=== PATIENT | female | born 1970 | race American Indian/Alaskan Native ===

== ENCOUNTER 2016-08-20 10:27 | Inpatient (IN) | payer BC, OTHER ==
[2016-08-20] MEDS ORDERED: Sodium Chloride 0.9% 1,000 ML IV ONE (10:53)
[2016-08-20] MEDS ORDERED: diphenhydrAMINE 50 MG/ML SDV IVPUSH ONE ×2 (10:53→14:52)
[2016-08-20] MEDS ORDERED: LORazepam 2 MG/ML MDV IVPUSH ONE (10:53)
--- NOTE | 2016-08-20 10:55 | EDM.PDOC ---
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 Past medical history: As per history of present illness and as reviewed below otherwise noncontributory. Surgical history: As per history of present illness and as reviewed below otherwise noncontributory. Social history: No reported history of drug or alcohol abuse. Family history: As per history of present illness and as reviewed below otherwise noncontributory. Physical exam: HEENT: Atraumatic, normocephalic, pupils reactive, negative for conjunctival pallor or scleral icterus, mucous membranes moist, throat clear, neck supple, nontender, trachea midline. Lungs: Clear to auscultation, breath sounds equal bilaterally, chest nontender. Heart: S1S2, regular, negative for clicks, rubs, or JVD. Abdomen: Soft, nondistended, nontender. Negative for masses or hepatosplenomegaly. Negative for costovertebral tenderness. Pelvis: Stable nontender. Genitourinary: Deferred. Rectal: Deferred. Extremities: Atraumatic, negative for cords or calf pain. Neurovascular unremarkable. Neuro: Awake, alert, oriented. Cranial nerves II through XII unremarkable. Cerebellum unremarkable. Motor and sensory unremarkable throughout. Decreased security test engineer strength on the right compared to left as well as decreased plantar flexion of right foot Diagnostics: []Lab as below EKG Chest [address] without Therapeutics: []Normal saline bolus Ativan 1 mg IV Benadryl 50 mg IV Impression: []Dizziness Left hand tingling/decreased security test engineer strength compared to right Decreased plantar flexion left foot compared to right Definitive disposition and diagnosis as appropriate pending reevaluation and review of above. 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 Pain Score (Numeric/FACES): 8 - Related Data Allergies Allergy/AdvReac Type Severity Reaction Status Date / Time chocolate flavor Allergy Difficulty Verified 08/20/16 10:34 Breathing codeine Allergy Rash Verified 08/20/16 10:34 Home Meds: Home Meds Phentermine HCl 30 mg PO DAILY 08/20/16 [History] Topiramate 100 mg PO DAILY 08/20/16 [History] Past Medical History HEENT History: Reports: None Cardiovascular History: Reports: None Respiratory History: Reports: None Gastrointestinal History: Reports: None Genitourinary History: Reports: None 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: Musculoskeletal History: Reports: None Neurological History: Reports: None Psychiatric History: Reports: None Endocrine/Metabolic History: Reports: None Hematologic History: Reports: None Immunologic History: Reports: None Oncologic (Cancer) History: Reports: None Dermatologic History: Reports: None - Infectious Disease History Infectious Disease History: Reports: Chicken Pox - Past Surgical History GI Surgical History: Reports: Appendectomy, Cholecystectomy, Other (See Below) Other GI Surgeries/Procedures: Gastric Surgery Female Surgical History: Reports: Section Dermatological Surgical History: Reports: Other (See Below) Social & Family History - Family History Family Medical History: Noncontributory - Tobacco Use Smoking Status *Q: Never Smoker - Caffeine Use Caffeine Use: Reports: None - Alcohol Use Days Per Week of Alcohol Use: 0 Number of Drinks Per Day: 0 Total Drinks Per Week: 0 - Recreational Drug Use Recreational Drug Use: No Drug Use in Last 12 Months: No ED ROS GENERAL - Review of Systems Review Of Systems: ROS reveals no pertinent complaints other than HPI. ED EXAM, GENERAL - Physical Exam Exam: See Below Course - Vital Signs Last Recorded V/S: Last Vital Signs Temp 36.3 C 08/20/16 12:08 Pulse 69 08/20/16 12:08 Resp 18 08/20/16 12:08 BP 120/72 08/20/16 12:08 Pulse Ox 100 08/20/16 12:08 - Orders/Labs/Meds Orders: Active Orders 24 hr Category Date Time Status EKG Documentation Completion [RC] STAT Care 08/20/16 10:53 Active Labs: Laboratory Tests 08/20/16 08/20/16 08/20/16 Range/Units 11:00 11:00 11:00 WBC 5.80 (4.0-11.0) K/uL RBC 3.65 L (4.30-5.90) M/uL Hgb 11.7 L (12.0-16.0) g/dL Hct 34.0 L (36.0-46.0) % MCV 93.2 (80.0-98.0) fL MCH 32.1 H (27.0-32.0) pg MCHC 34.4 (31.0-37.0) g/dL RDW Std Deviation 44.2 (28.0-62.0) fl RDW Coeff of Terri 13 (11.0-15.0) % Plt Count 131 L (150-400) K/uL MPV 10.80 (7.40-12.00) fL Neut % (Auto) 68.2 (48.0-80.0) % Lymph % (Auto) 21.9 (16.0-40.0) % [place] % (Auto) 8.3 (0.0-15.0) % Eos % (Auto) 1.4 (0.0-7.0) % Baso % (Auto) 0.2 (0.0-1.5) % Neut # (Auto) 4.0 (1.4-5.7) K/uL Lymph # (Auto) 1.3 (0.6-2.4) K/uL [place] # (Auto) 0.5 (0.0-0.8) K/uL Eos # (Auto) 0.1 (0.0-0.7) K/uL Baso # (Auto) 0.0 (0.0-0.1) K/uL Nucleated RBC % 0.0 /100WBC Nucleated RBCs # 0 K/uL INR (0.86-1.11) Sodium 140 (136-146) mmol/L Potassium 3.5 (3.5-5.1) mmol/L Chloride 111 H (98-110) mmol/L Carbon Dioxide 23 (21-31) mmol/L BUN 12 (6.0-23.0) mg/dL Creatinine 0.7 (0.6-1.5) mg/dL Est Cr Clr Drug Dosing 82.19 mL/min Estimated GFR (MDRD) > 60.0 ml/min Glucose 104 (60-110) mg/dL Calcium 8.7 L (8.8-10.8) mg/dL Total Bilirubin 0.5 (0.1-1.5) mg/dL AST 15 (5-40) IU/L ALT 16 (8-54) IU/L Alkaline Phosphatase 67 (40-150) Troponin I < 0.10 (0.0-0.29) NG/ML Total Protein 6.1 (6.0-8.0) g/dL Albumin 3.6 (3.5-5.0) g/dL Globulin 2.5 (2.0-3.5) g/dL Albumin/Globulin Ratio 1.4 (1.3-2.8) Urine Color Urine Appearance Urine pH (5.0-8.0) Ur Specific [place] (1.001-1.035) Urine Protein (NEGATIVE) mg/dL Urine Glucose (UA) (NEGATIVE) mg/dL Urine Ketones (NEGATIVE) mg/dL Urine Occult Blood (NEGATIVE) Urine Nitrite (NEGATIVE) Urine Bilirubin (NEGATIVE) Urine Urobilinogen (<2.0) EU/dL Ur Leukocyte Esterase (NEGATIVE) Urine RBC (0-2/HPF) Urine WBC (0-5/HPF) Ur Epithelial Cells (NONE-FEW) Urine Bacteria (NEGATIVE) Urine HCG, Qual (NEGATIVE) 08/20/16 08/20/16 08/20/16 Range/Units 11:00 11:45 11:45 WBC (4.0-11.0) K/uL RBC (4.30-5.90) M/uL Hgb (12.0-16.0) g/dL Hct (36.0-46.0) % MCV (80.0-98.0) fL MCH (27.0-32.0) pg MCHC (31.0-37.0) g/dL RDW Std Deviation (28.0-62.0) fl RDW Coeff of Terri (11.0-15.0) % Plt Count (150-400) K/uL MPV (7.40-12.00) fL Neut % (Auto) (48.0-80.0) % Lymph % (Auto) (16.0-40.0) % [place] % (Auto) (0.0-15.0) % Eos % (Auto) (0.0-7.0) % Baso % (Auto) (0.0-1.5) % Neut # (Auto) (1.4-5.7) K/uL Lymph # (Auto) (0.6-2.4) K/uL [place] # (Auto) (0.0-0.8) K/uL Eos # (Auto) (0.0-0.7) K/uL Baso # (Auto) (0.0-0.1) K/uL Nucleated RBC % /100WBC Nucleated RBCs # K/uL INR 1.06 (0.86-1.11) Sodium (136-146) mmol/L Potassium (3.5-5.1) mmol/L Chloride (98-110) mmol/L Carbon Dioxide (21-31) mmol/L BUN (6.0-23.0) mg/dL Creatinine (0.6-1.5) mg/dL Est Cr Clr Drug Dosing mL/min Estimated GFR (MDRD) ml/min Glucose (60-110) mg/dL Calcium (8.8-10.8) mg/dL Total Bilirubin (0.1-1.5) mg/dL AST (5-40) IU/L ALT (8-54) IU/L Alkaline Phosphatase (40-150) Troponin I (0.0-0.29) NG/ML Total Protein (6.0-8.0) g/dL Albumin (3.5-5.0) g/dL Globulin (2.0-3.5) g/dL Albumin/Globulin Ratio (1.3-2.8) Urine Color YELLOW Urine Appearance CLEAR Urine pH 6.0 (5.0-8.0) Ur Specific [place] <= 1.005 (1.001-1.035) Urine Protein NEGATIVE (NEGATIVE) mg/dL Urine Glucose (UA) NEGATIVE (NEGATIVE) mg/dL Urine Ketones NEGATIVE (NEGATIVE) mg/dL Urine Occult Blood NEGATIVE (NEGATIVE) Urine Nitrite NEGATIVE (NEGATIVE) Urine Bilirubin NEGATIVE (NEGATIVE) Urine Urobilinogen 0.2 (<2.0) EU/dL Ur Leukocyte Esterase NEGATIVE (NEGATIVE) Urine RBC 0-2 (0-2/HPF) Urine WBC 0-3 (0-5/HPF) Ur Epithelial Cells MODERATE (NONE-FEW) Urine Bacteria FEW (NEGATIVE) Urine HCG, Qual NEGATIVE (NEGATIVE) Meds: Medications Discontinued Medications Generic Name Dose Route Start Last Admin Trade Name Freq PRN Reason Stop Dose Admin Aspirin 324 mg 08/20/16 12:54 Aspirin PO 08/20/16 12:55 ONETIME ONE Diphenhydramine HCl 50 mg 08/20/16 10:53 08/20/16 11:07 Benadryl IVPUSH 08/20/16 10:54 50 mg ONETIME ONE Administration Sodium Chloride 1,000 mls @ 999 mls/hr 08/20/16 10:53 08/20/16 11:07 Normal Saline IV 08/20/16 11:53 999 mls/hr STAT ONE Administration Ketorolac Tromethamine 30 mg 08/20/16 12:37 08/20/16 12:53 Toradol IVPUSH 08/20/16 12:38 30 mg ONETIME ONE Administration Lorazepam 1 mg 08/20/16 10:53 08/20/16 11:07 Ativan IVPUSH 08/20/16 10:54 1 mg ONETIME ONE Administration Departure - Departure Time of Disposition: 12:58 Disposition: Home, Self-Care 01 Condition: Fair Clinical Impression: Weakness of hand - Discharge Information Referrals: PCP,None [Primary Care Provider] - Forms: ED Department Discharge - My Orders Last 24 Hours: My Active Orders 08/20/16 10:53 EKG Documentation Completion [RC] STAT - Assessment/Plan Last 24 Hours: My Active Orders 08/20/16 10:53 EKG Documentation Completion [RC] STAT
[2016-08-20 11:37] LABS: CHLORIDE,CL 111 mmol/L (98-110); SODIUM,NA 140 mmol/L (136-146)
--- NOTE | 2016-08-20 12:28 | CT ---
EXAMINATION: Non contrast CT head. Coronal and sagittal reformats. HISTORY: Dizziness FINDINGS: No evidence of intra or extra axial hemorrhage, mass, midline shift, hydrocephalus or edema. No hypoattenuation changes in the major vascular territories to suggest acute infarct. No abnormal intracranial calcifications are detected. No evidence of substantial vascular calcifica tions. Paranasal sinuses and mastoid air cells are well aerated without substantial findings. The orbits a nd globes are symmetric. Pituitary fossa appears unremarkable. Calvarium is intact. No evidence of skull fracture. IMPRESSION: No acute intracranial findings.
[2016-08-20] MEDS ORDERED: Ketorolac 30 MG/ML SDV IVPUSH ONE (12:37)
[2016-08-20] MEDS ORDERED: Aspirin 81 MG Tab.Chew PO ONE (12:54)
--- NOTE | 2016-08-20 13:29 | PCM.HP ---
H&P History of Present Illness - General Date of Service: 08/20/16 Admit Problem/Dx: L sided weakness Source of Information: Patient History Limitations: Reports: No Limitations - History of Present Illness Initial Comments - Free Text/Narative: This 45 year old female with pmh of hx gastric sleeve presented to the ED today with concerns of a headache and L sided weakness that started yesterday. She reports her headache came yesterday and she took tylenol which then the headache went away, later on in the evening the headache came back along with the L sided paresthesias and weakness. She denies recent fevers, URI, or neck pain. She denies chest pain, SOB, or palpitations. She denies heartubrn, N/V urinary symptoms or abdominal pain. She is unable to ambulate without dragging her leg left. 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 She otherwise is healthy, no cardiac history or DM. SHe takes Phentermine and Topiramate for appetite suppression. She has no history of migraines, has had some headaches but never this bad. The headache is all over, with some photosensitivity. Does not recall an aura. In the ED no leukocytosis noted, Troponin negative. UA negative. VS stable. EKG , SR 60s no ST segment changes. Head CT negative. She will be admitted with L sided weakness and headache. headache Pain Score (Numeric/FACES): 8 - Related Data Allergies/Adverse Reactions: Allergies Allergy/AdvReac Type Severity Reaction Status Date / Time chocolate flavor Allergy Difficulty Verified 08/20/16 10:34 Breathing codeine Allergy Rash Verified 08/20/16 10:34 Home Medications: Home Meds Phentermine HCl 30 mg PO DAILY 08/20/16 [History] Topiramate 100 mg PO DAILY 08/20/16 [History] Past Medical History HEENT History: Reports: None Cardiovascular History: Reports: None. Denies: Blood Clots/VTE/DVT, Heart Murmur, High Cholesterol, Hypertension Respiratory History: Reports: Asthma (being worked up for asthma by PCP) Gastrointestinal History: Reports: None. Denies: GERD, GI Bleed Genitourinary History: Reports: None. 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 Denies: CVA, Migraines, TIA Psychiatric History: Reports: None Endocrine/Metabolic History: Reports: None. Denies: Diabetes, Type II Hematologic History: Reports: None Immunologic History: Reports: None Oncologic (Cancer) History: Reports: None Dermatologic History: Reports: None - Infectious Disease History Infectious Disease History: Reports: Chicken Pox - Past Surgical History GI Surgical History: Reports: Appendectomy, Cholecystectomy, Other (See Below) Other GI Surgeries/Procedures: Gastric Surgery Female Surgical History: Reports: Section Endocrine Surgical History: Reports: Thyroid Biopsy (benign nodule removed.) Dermatological Surgical History: Reports: Other (See Below) Social & Family History - Family History Family Medical History: Noncontributory - Tobacco Use Smoking Status *Q: Never Smoker - Caffeine Use Caffeine Use: Reports: None - Alcohol Use Days Per Week of Alcohol Use: 0 Number of Drinks Per Day: 0 Total Drinks Per Week: 0 - Recreational Drug Use Recreational Drug Use: No Drug Use in Last 12 Months: No H&P Review of Systems - Review of Systems: Review Of Systems: See Below General: Reports: No Symptoms. Denies: Fever, Chills, Fatigue HEENT: Reports: Headaches. Denies: Eye Pain, Hearing Changes, Visual Changes Pulmonary: Reports: No Symptoms. Denies: Shortness of Breath, Cough, Sputum Cardiovascular: Reports: No Symptoms. Denies: Chest Pain, Palpitations, Dyspnea on Exertion, Edema, Lightheadedness Gastrointestinal: Reports: No Symptoms. Denies: Abdominal Pain, Black Stool, Bloody Stool, Nausea, Vomiting Genitourinary: Reports: No Symptoms. Denies: Dysuria, Frequency, Burning Musculoskeletal: Denies: Neck Pain, Shoulder Pain Skin: Reports: No Symptoms Psychiatric: Reports: No Symptoms. Denies: Confusion Neurological: Reports: Headache, Numbness, Paresthesia, Difficulty Walking, Weakness Hematologic/Lymphatic: Reports: No Symptoms Immunologic: Reports: No Symptoms Exam - Exam Exam: See Below - Vital Signs Vital Signs: Last Vital Signs Temp 97.4 F 08/20/16 12:08 Pulse 67 08/20/16 13:12 Resp 18 08/20/16 13:12 BP 117/66 08/20/16 13:12 Pulse Ox 100 08/20/16 13:12 Weight: 71.214 kg - Exam General: Alert, Oriented, Cooperative HEENT: Conjunctiva Clear, Nares Patent, Posterior Pharynx Clear, Pupils Equal, Pupils Reactive, TMs Clear. No: Mucosa Moist & [place] Neck: Supple, Trachea Midline, 2 Lungs: Clear to Auscultation, Normal Respiratory Effort Cardiovascular: Regular Rate, Regular Rhythm Abdomen: Normal Bowel Sounds, Soft. No: Tenderness Back Exam: Normal Inspection, Full Range of Motion, NT Extremities: Normal Inspection, Normal Pulses Neurological: Cranial Nerves Intact, Normal Speech. No: Strength Equal Bilateral Neuro Extensive - Mental Status: Alert, Oriented x3, Normal Mood/Affect, Normal Cognition, Memory Intact Neuro Extensive - Motor, Sensory, Reflexes: CN II-XII Intact, Other ( Hemiparesis to L arm and leg). No: Normal Gait Psychiatric: Alert, Normal Affect, Normal Mood - Patient Data Result Diagrams: 08/20/16 11:00 08/20/16 11:00 EKG INTERPRETATION EKG Date: 08/20/16 Time: 11:04 Rhythm: NSR Rate (Beats/Min): 60 [place]: Normal P-Wave: Present QRS: Normal ST-T: Normal QT: Normal *Q Meaningful Use (ADM) - VTE *Q VTE Criteria *Q: - VTE Risk Assess *Q Each Risk Factor Represents 1 Point: Age 41 - 59 years Total Score 1 Point Risk Factors: 1 Each Risk Factor Represents 2 Points: None Total Score 2 Point Risk Factors: 0 Each Risk Factor Represents 3 Points: None Total Score 3 Point Risk Factors: 0 Each Risk Factor Represents 5 Points: None Total Score 5 Point Risk Factors: 0 Venous Thromboembolism Risk Factor Score *Q: 1 - Stroke *Q Stroke Criteria *Q: - AMI *Q AMI Criteria *Q: - Problem List (1) Headache SNOMED Code(s): 07023848 ICD Code: R51 - HEADACHE Status: Acute Current Visit: Yes Qualifiers: Headache type: unspecified Headache chronicity pattern: acute headache Intractability: intractable Qualified Code(s): R51 - Headache (2) Weakness of left side of body SNOMED Code(s): 544499990 ICD Code: R53.1 - WEAKNESS Status: Acute Current Visit: Yes Problem List Initiated/Reviewed/Updated: Yes Assessment/Plan Comment:: This 45 year old female admitted with L sided weakness and headache 1. L sided weakness: Consulted Dr. Guerrero, I appreciated her assistance, she saw patient in ED. Recommends MRI brain for now and obtain ESR. Symptoms slightly complicated, stroke VS. complicated migraine. Will obtain Lipid panel and A1c. Monitor on telemetry. 2. Headache: Tylenol and Toradol PRN. Will order for Reglan x1 and Benadryl x1 now. Monitor. VTE prophylaxis: SCDs Dispo: 1-2 days, pending MRI results
[2016-08-20] MEDS ORDERED: Albuterol 0.083% 2.5 MG/3 ML Neb Soln NEB PRN (14:20)
[2016-08-20] MEDS ORDERED: Ondansetron 4 MG/2 ML SDV IVPUSH PRN (14:20)
[2016-08-20] MEDS: Sodium Chloride 0.9% 1,000 ML IV SCH ×2 (14:38→23:47)
[2016-08-20] MEDS ORDERED: Ketorolac 15 MG/ML SDV IVPUSH PRN (14:50)
[2016-08-20] MEDS ORDERED: Metoclopramide 10 MG/2 ML SDV IVPUSH ONE (15:05)
--- NOTE | 2016-08-20 15:36 | PCM.CONS ---
H&P History of Present Illness - General Date of Service: 08/20/16 Admit Problem/Dx: Headache, L sided weakness and numbness - History of Present Illness Initial Comments - Free Text/Narative: This is a 45-year-old woman presenting with 1 day history of headache, left- sided numbness and weakness Yesterday, she developed a headache mostly in the forehead and left parietal area down to left side of the neck. She took Tylenol, and headache improved, but then recurred. Yesterday she also noted left arm and leg tingling, mild dizziness. Today, headache was worse, and tingling and weakness was worse on the left side, prompting visit to the emergency department. She also describes dizziness which is a lightheaded sensation like she is going to pass out. Her headache is currently left-sided, throbbing associated with light and sound sensitivity. She has nausea upon standing. She has lightheadedness upon standing. She has tingling and numbness involving the left lower limb, left upper limb and left-sided face. She has been more forgetful in the last 2 weeks. She denies any neck stiffness, vision changes, slurred speech, rash, fevers, chills She has occasional mild headaches, but no severe headaches or migraines. She is on Topamax for weight loss. headache Pain Score (Numeric/FACES): 8 - Related Data Allergies/Adverse Reactions: Allergies Allergy/AdvReac Type Severity Reaction Status Date / Time chocolate flavor Allergy Difficulty Verified 08/20/16 10:34 Breathing codeine Allergy Rash Verified 08/20/16 10:34 Home Medications: Home Meds Phentermine HCl 30 mg PO DAILY 08/20/16 [History] Topiramate 100 mg PO DAILY 08/20/16 [History] Past Medical History HEENT History: Reports: None Cardiovascular History: Reports: None. Denies: Blood Clots/VTE/DVT, Heart Murmur, High Cholesterol, Hypertension Respiratory History: Reports: Asthma (being worked up for asthma by PCP) Gastrointestinal History: Reports: None. Denies: GERD, GI Bleed Genitourinary History: Reports: None. 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 Denies: CVA, Migraines, TIA Psychiatric History: Reports: None Endocrine/Metabolic History: Reports: None. Denies: Diabetes, Type II Hematologic History: Reports: None Immunologic History: Reports: None Oncologic (Cancer) History: Reports: None Dermatologic History: Reports: None - Infectious Disease History Infectious Disease History: Reports: Chicken Pox - Past Surgical History GI Surgical History: Reports: Appendectomy, Cholecystectomy, Other (See Below) Other GI Surgeries/Procedures: Gastric Sleeve. Surgery Female Surgical History: Reports: Section Endocrine Surgical History: Reports: Thyroid Biopsy (benign nodule removed.) Dermatological Surgical History: Reports: Other (See Below) Social & Family History - Family History Family Medical History: Noncontributory - Tobacco Use Smoking Status *Q: Never Smoker - Caffeine Use Caffeine Use: Reports: None - Alcohol Use Days Per Week of Alcohol Use: 0 Number of Drinks Per Day: 0 Total Drinks Per Week: 0 - Recreational Drug Use Recreational Drug Use: No Drug Use in Last 12 Months: No H&P Review of Systems - Review of Systems: Review Of Systems: ROS reveals no pertinent complaints other than HPI. Exam - Exam Exam: See Below - Vital Signs Vital Signs: Last Vital Signs Temp 36.8 C 08/20/16 14:04 Pulse 67 08/20/16 14:04 Resp 16 08/20/16 14:04 BP 128/71 08/20/16 14:04 Pulse Ox 100 08/20/16 14:20 Weight: 71.214 kg - Exam Physical Exam Comments:: Constitutional: Appears uncomfortable, keeps eyes closed Psychiatric: Mood/Affect: normal/appropriate Neurological: Mental Status: General: Normal activity, good hygiene, appropriate appearance. Level of consciousness: Awake, alert. Orientation: Oriented to person, place, time and situation. Concentration/Attention Span: Normal. Comprehension/Praxis: Able to perform a three step command. Cranial Nerves: Pupils equally round and reactive to light. Visual nowak full to confrontation. Gaze conjugate, EOMI. Sensation diminished to light touch and temp left V1-V3. Facial strength is full and symmetric. Palate elevates symmetrically. Normal shrug bilaterally. Tongue protrudes midline Motor: Normal tone in all groups. No drift. Weakness in all muscle groups in left upper and lower limb with giveway, at least antigravity in upper limb. In left lower limb, quads at least 4, o/w best I could get was 2 with confrontation , but she was able to do H-S on left while supine. Power is 5/5 throughout proximal and distal muscles in left upper and lower limb. Sensation: Sensation is decreased to temp left upper and lower limb. Deep tendon reflexes: Normoactive throughout upper limbs, diminished in lower limbs. Plantar responses are flexor bilaterally. Coordination: Finger to nose intact on the right, dysmetric on the left. Heel to chavira intact on the right, limited on left due to weakness. Eyes: non icteric, Mouth: moist mucus membranes Cardiovascular: RRR, no obvious murmur Respiratory: clear lungs GI: non tender Musculoskeletal: no nuchal rigidity Skin: no visible rash - Patient Data Result Diagrams: 08/20/16 11:00 08/20/16 11:00 Imaging Impressions Last 24 hrs: CT head today normal Consult PN Assessment/Plan Procedures: Procedures CONTRST X-RAY UPPR GI TRACT (07/21/14) KNEE ARTHROSCOPY/SURGERY (12/07/13) PT EVALUATION (12/22/13) THERAPEUTIC EXERCISES (01/04/14) US EXAM OF HEAD AND NECK (11/30/15) (1) Headache SNOMED Code(s): 80916398 Code(s): R51 - HEADACHE Current Visit: Yes Qualifiers: Headache type: unspecified Headache chronicity pattern: acute headache Intractability: intractable Qualified Code(s): R51 - Headache (2) Weakness of left side of body SNOMED Code(s): 608877830 Code(s): R53.1 - WEAKNESS Current Visit: Yes Problem List Initiated/Reviewed/Updated: Yes Plan: 45-year-old woman 1 day history of headache, left-sided weakness, numbness. Differential includes stroke, vasculopathy/vasculitis, COOLER OPERATOR infection (no fever, nuchal rigidity or leukocytosis), mass lesion, venous sinus thrombosis, migraine. I recommended starting with MRI brain treatment of headache with Toradol and Phernergan or Reglan.
[2016-08-20] MEDS ORDERED: Gadobenate Dimeglumine 529 MG/ML 20 ML SDV IVPUSH STA (16:05)
[2016-08-20] MEDS: Acetaminophen 325 MG Tab PO PRN ×2 (16:51→23:45)
[2016-08-21] MEDS: Sodium Chloride 0.9% 1,000 ML IV SCH (07:51)
--- NOTE | 2016-08-21 10:09 | MR ---
EXAM DATE: 08/20/16 PATIENT'S AGE: 45 Patient: OMARI COTTER Facility: [place], [place] Site . Site : [id number] Study: MRI Head W/ and W/O Cont [id number]/27/2017 4:59:53 PM Ordering Physician: Nacho Ram Final Report: INDICATION: 45-year-old female with headaches and left-sided weakness. TECHNIQUE: Sagittal T1, axial FLAIR, T2, diffusion weighted, susceptibility weighted and gadolinium-enhanced sagittal axial and coronal T1 images. FINDINGS: The lateral 3rd and 4th ventricles are normal in size and configuration. There is no evidence of acute ischemic infarction. There are no areas of diffusion restriction there is no evidence of intracranial hemorrhage no enhancing intra- axial or extra-axial lesions. Cerebellar tonsils project approximately 4 mm below the foramen magnum level without compression of the brainstem. IMPRESSION: 1. No evidence of acute ischemic infarction, intracranial hemorrhage, mass, cerebral demyelination or enhancing lesion. 2. 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 Dictated by Master Garg MD @ 08/20/2016 5:47:41 PM Dictated by: Master Garg MD @ 08/20/2016 17:47:51 (Electronic Signature) Report Signed by Proxy. RONDA
[2016-08-21] MEDS: Acetaminophen 325 MG Tab PO PRN (11:32)
[2016-08-21] MEDS ORDERED: Ondansetron 4 MG Tab.DIS PO PRN (12:57)
[2016-08-21 13:08] VITALS: BP 115/58
[2016-08-21] MEDS ORDERED: diphenhydrAMINE 50 MG/ML SDV IVPUSH ONE (13:28)
[2016-08-21] MEDS ORDERED: Metoclopramide 10 MG/2 ML SDV IVPUSH ONE (13:28)
[2016-08-21] MEDS ORDERED: Ketorolac 30 MG/ML SDV IVPUSH ONE (13:28)
--- NOTE | 2016-08-21 14:12 | PCM.PN ---
- General Info Date of Service: 08/21/16 Admission Dx/Problem (Free Text): Headache, L sided weakness and numbness Subjective Update: Patient doing well this morning. No more headache. No chest pain or SOB. Functional Status: Reports: pain controlled, tolerating diet, ambulating - Review of Systems General: Reports: No Symptoms. Denies: Fever, Weakness HEENT: Reports: no symptoms Pulmonary: Reports: no symptoms. Denies: shortness of breath Cardiovascular: Denies: Chest Pain Gastrointestinal: Reports: No symptoms. Denies: Abdominal pain Genitourinary: Reports: no symptoms Neurological: Reports: Paresthesia (L side, arm and leg) Psychiatric: Reports: no symptoms - Patient Data Vitals - most recent: Last Vital Signs Temp 98.7 F 08/21/16 12:00 Pulse 76 08/21/16 12:00 Resp 16 08/21/16 12:00 BP 115/58 L 08/21/16 12:00 Pulse Ox 97 08/21/16 12:00 Weight - most recent: 71.214 kg I&O - last 24 hours: Intake & Output 08/20/16 08/21/16 08/21/16 22:59 06:59 14:59 Intake Total 100 1000 Output Total 300 Balance -200 1000 Med Orders - Current: Current Medications Acetaminophen (Tylenol) 650 mg PO Q4H PRN PRN Reason: Pain Last Admin: 08/21/16 11:32 Dose: 650 mg Albuterol (Proventil Neb Soln) 2.5 mg NEB Q2H PRN PRN Reason: Shortness Of Breath/wheezing Sodium Chloride (Normal Saline) 1,000 mls @ 125 mls/hr IV ASDIRECTED [facility] Last Admin: 08/21/16 07:51 Dose: 125 mls/hr Ketorolac Tromethamine (Toradol) 15 mg IVPUSH Q6H PRN PRN Reason: Pain Stop: 08/25/16 14:50 Ondansetron HCl (Zofran) 4 mg IVPUSH Q4H PRN PRN Reason: Nausea Ondansetron HCl (Zofran Odt) 4 mg PO Q4H PRN PRN Reason: Nausea/Vomiting Discontinued Medications Aspirin (Aspirin) 324 mg PO ONETIME ONE Stop: 08/20/16 12:55 Last Admin: 08/20/16 13:00 Dose: 324 mg Diphenhydramine HCl (Benadryl) 50 mg IVPUSH ONETIME ONE Stop: 08/20/16 10:54 Last Admin: 08/20/16 11:07 Dose: 50 mg Diphenhydramine HCl (Benadryl) 25 mg IVPUSH ONETIME ONE Stop: 08/20/16 14:53 Last Admin: 08/20/16 16:50 Dose: 25 mg Diphenhydramine HCl (Benadryl) 25 mg IVPUSH ONETIME ONE Stop: 08/21/16 13:29 Last Admin: 08/21/16 13:47 Dose: 25 mg Gadobenate Dimeglumine (Multihance) 20 ml IVPUSH ONETIME STA Stop: 08/20/16 16:06 Last Admin: 08/20/16 16:07 Dose: 14 ml Sodium Chloride (Normal Saline) 1,000 mls @ 999 mls/hr IV STAT ONE Stop: 08/20/16 11:53 Last Admin: 08/20/16 11:07 Dose: 999 mls/hr Ketorolac Tromethamine (Toradol) 30 mg IVPUSH ONETIME ONE Stop: 08/20/16 12:38 Last Admin: 08/20/16 12:53 Dose: 30 mg Ketorolac Tromethamine (Toradol) 30 mg IVPUSH ONETIME ONE Stop: 08/21/16 13:29 Last Admin: 08/21/16 13:42 Dose: 30 mg Lorazepam (Ativan) 1 mg IVPUSH ONETIME ONE Stop: 08/20/16 10:54 Last Admin: 08/20/16 11:07 Dose: 1 mg Metoclopramide HCl (Reglan) 10 mg IVPUSH ONETIME ONE Stop: 08/20/16 15:06 Last Admin: 08/20/16 16:50 Dose: 10 mg Metoclopramide HCl (Reglan) 10 mg IVPUSH ONETIME ONE Stop: 08/21/16 13:29 Last Admin: 08/21/16 13:42 Dose: 10 mg - Exam General: alert, oriented, cooperative, no acute distress Neck: supple Lungs: Clear to auscultation, Normal respiratory effort Cardiovascular: Regular Rate, Regular Rhythm Extremities: no edema Neurological: other (numbness/tingling to L side, weakness to L arm and leg) Psy/Mental Status: alert, normal affect, normal mood - Problem List & Annotations (1) Headache SNOMED Code(s): 60401443 Code(s): R51 - HEADACHE Status: Acute Current Visit: Yes Qualifiers: Headache type: unspecified Headache chronicity pattern: acute headache Intractability: intractable Qualified Code(s): R51 - Headache (2) Weakness of left side of body SNOMED Code(s): 204918825 Code(s): R53.1 - WEAKNESS Status: Acute Current Visit: Yes - Problem List Review Problem List Initiated/Reviewed/Updated: Yes - My Orders Last 24 Hours: My Active Orders 08/20/16 14:20 Intake and Output [RC] Q12H Oxygen Therapy [RC] PRN Up With Assistance [RC] ASDIRECTED Vital Signs [RC] Q4H Consult to Physician [CONS] Routine Albuterol [Proventil Neb Soln] 2.5 mg NEB Q2H PRN Ondansetron [Zofran] 4 mg IVPUSH Q4H PRN Resuscitation Status Routine 08/20/16 14:21 Antiembolic Devices [RC] Q12H RT Aerosol Therapy [RC] ASDIRECTED Sequential Compression Device [OM.PC] Per Unit Routine 08/20/16 14:22 Notify Provider Consults [RC] ASDIRECTED 08/20/16 14:30 Sodium Chloride 0.9% [Normal Saline] 1,000 ml IV ASDIRECTED 08/20/16 14:50 Acetaminophen [Tylenol] 650 mg PO Q4H PRN Ketorolac [Toradol] 15 mg IVPUSH Q6H PRN 08/20/16 15:57 Telemetry Monitoring [Cardiac Monitoring] [RC] . DIRECTED 08/20/16 Dinner Regular Diet [DIET] 08/21/16 11:02 Shop Supervisor Discontinue [Cardiac Monitoring Discontinue] [RC] Click To Edit Consult to Physical Therapy [PT Evaluation and Treatment] [CONS] Routine 08/21/16 12:57 Ondansetron [Zofran ODT] 4 mg PO Q4H PRN - Plan Plan:: This 45 year old female admitted with L sided weakness and headache 1. L sided weakness: Consulted Dr. Guerrero, I appreciated her assistance. MRI reported no acute intracranial process, did no Chiari I malformation, patient aware and will speak with Dr. Guerrero. Will arrange follow up with Dr. Guerrero as outpatient. CVA ruled out, weakness due to complicated migraine. 2. Headache: improved this morning. Now has returned this afternoon, she would like to go home if headache subsides. Will give Toradol, Benadryl and Reglan now. Will monitor. VTE prophylaxis: SCDs Dispo: possibly this evening.
--- NOTE | 2016-08-21 15:53 | PCM.CONSN ---
[id number] and numbness Subjective Update: Her headache had resolved by this morning, but has returned. She also developed nausea and vomiting, which may have been due to taking pills on empty stomach, getting up and walking around. She has susceptibility to nausea and vomiting chronically related to her prior abdominal surgeryHer headache had resolved by this morning, but has returned. She also developed nausea and vomiting, which may have been due to taking pills on empty stomach, getting up and walking around. She has susceptibility to nausea and vomiting chronically related to her prior abdominal surgery - Patient Data Vitals - most recent: Last Vital Signs Temp 37.1 C 08/21/16 12:00 Pulse 76 08/21/16 12:00 Resp 16 08/21/16 12:00 BP 115/58 L 08/21/16 12:00 Pulse Ox 100 08/21/16 14:20 Weight - most recent: 71.214 kg I&O - last 24 hours: Intake & Output 08/21/16 08/21/16 08/21/16 06:59 14:59 22:59 Intake Total 1000 Balance 1000 Med Orders - Current: Current Medications Acetaminophen (Tylenol) 650 mg PO Q4H PRN PRN Reason: Pain Last Admin: 08/21/16 11:32 Dose: 650 mg Albuterol (Proventil Neb Soln) 2.5 mg NEB Q2H PRN PRN Reason: Shortness Of Breath/wheezing Sodium Chloride (Normal Saline) 1,000 mls @ 125 mls/hr IV ASDIRECTED [facility] Last Admin: 08/21/16 07:51 Dose: 125 mls/hr Ketorolac Tromethamine (Toradol) 15 mg IVPUSH Q6H PRN PRN Reason: Pain Stop: 08/25/16 14:50 Ondansetron HCl (Zofran) 4 mg IVPUSH Q4H PRN PRN Reason: Nausea Ondansetron HCl (Zofran Odt) 4 mg PO Q4H PRN PRN Reason: Nausea/Vomiting Discontinued Medications Aspirin (Aspirin) 324 mg PO ONETIME ONE Stop: 08/20/16 12:55 Last Admin: 08/20/16 13:00 Dose: 324 mg Diphenhydramine HCl (Benadryl) 50 mg IVPUSH ONETIME ONE Stop: 08/20/16 10:54 Last Admin: 08/20/16 11:07 Dose: 50 mg Diphenhydramine HCl (Benadryl) 25 mg IVPUSH ONETIME ONE Stop: 08/20/16 14:53 Last Admin: 08/20/16 16:50 Dose: 25 mg Diphenhydramine HCl (Benadryl) 25 mg IVPUSH ONETIME ONE Stop: 08/21/16 13:29 Last Admin: 08/21/16 13:47 Dose: 25 mg Gadobenate Dimeglumine (Multihance) 20 ml IVPUSH ONETIME STA Stop: 08/20/16 16:06 Last Admin: 08/20/16 16:07 Dose: 14 ml Sodium Chloride (Normal Saline) 1,000 mls @ 999 mls/hr IV STAT ONE Stop: 08/20/16 11:53 Last Admin: 08/20/16 11:07 Dose: 999 mls/hr Ketorolac Tromethamine (Toradol) 30 mg IVPUSH ONETIME ONE Stop: 08/20/16 12:38 Last Admin: 08/20/16 12:53 Dose: 30 mg Ketorolac Tromethamine (Toradol) 30 mg IVPUSH ONETIME ONE Stop: 08/21/16 13:29 Last Admin: 08/21/16 13:42 Dose: 30 mg Lorazepam (Ativan) 1 mg IVPUSH ONETIME ONE Stop: 08/20/16 10:54 Last Admin: 08/20/16 11:07 Dose: 1 mg Metoclopramide HCl (Reglan) 10 mg IVPUSH ONETIME ONE Stop: 08/20/16 15:06 Last Admin: 08/20/16 16:50 Dose: 10 mg Metoclopramide HCl (Reglan) 10 mg IVPUSH ONETIME ONE Stop: 08/21/16 13:29 Last Admin: 08/21/16 13:42 Dose: 10 mg - Exam Physical Findings Comments:: Constitutional: Appears uncomfortable, vomiting when I entered the room Neurological: Mental Status: Level of consciousness: Awake, alert. Concentration/Attention Span: Normal. Comprehension/Praxis: Able to perform a three step command. Cranial Nerves: Pupils equally round and reactive to light. Visual nowak full to confrontation. Gaze conjugate, EOMI. Sensation diminished to light touch and temp left V1-V3. Facial strength is full and symmetric. Palate elevates symmetrically. Normal shrug bilaterally. Tongue protrudes midline Motor: Normal tone in all groups. No drift. Weakness in all muscle groups in left upper and lower limb with giveway, improved compared to yesterday, at least antigravity in lower limb, 4 in upper limb Sensation: Sensation is decreased to temp left upper and lower limb. Deep tendon reflexes: Normoactive throughout upper limbs, diminished in lower limbs. Plantar responses are flexor bilaterally. Coordination: Finger to nose intact on the right, dysmetric on the left. Heel to chavira intact on the right, limited on left due to weakness. Consult PN Assessment/Plan Procedures: Procedures CONTRST X-RAY UPPR GI TRACT (07/21/14) KNEE ARTHROSCOPY/SURGERY (12/07/13) PT EVALUATION (12/22/13) THERAPEUTIC EXERCISES (01/04/14) US EXAM OF HEAD AND NECK (11/30/15) (1) Headache SNOMED Code(s): 47126230 Code(s): R51 - HEADACHE Current Visit: Yes Qualifiers: Headache type: unspecified Headache chronicity pattern: acute headache Intractability: intractable Qualified Code(s): R51 - Headache (2) Weakness of left side of body SNOMED Code(s): 281849008 Code(s): R53.1 - WEAKNESS Current Visit: Yes Assessment:: Headache, left sided weakness, left sided numbness: 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 MRI negative. Home today if headache controlled and she is able to ambulate. f/u with me in 2-3 weeks. Problem List Initiated/Reviewed/Updated: Yes
--- NOTE | 2016-08-21 17:10 | PCM.DCSUM1 ---
Discharge Summary - Hospital Course Brief History: This 45 year old female with pmh of hx gastric sleeve presented to the ED with concerns of a headache and L sided weakness that started yesterday. She reports her headache came yesterday and she took tylenol which then the headache went away, later on in the evening the headache came back along with the L sided paresthesias and weakness. She denies recent fevers, URI , or neck pain. She denies chest pain, SOB, or palpitations. She denies heartubrn, N/V urinary symptoms or abdominal pain. She is unable to ambulate without dragging her leg left. 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 She otherwise is healthy, no cardiac history or DM. SHe takes Phentermine and Topiramate for appetite suppression. She has no history of migraines, has had some headaches but never this bad. The headache is all over, with some photosensitivity. Does not recall an aura. In the ED no leukocytosis noted, Troponin negative. UA negative. VS stable. EKG, SR 60s no ST segment changes. Head CT negative. She was admitted with L sided weakness and headache. - Discharge Data Discharge Date: 08/21/16 Discharge Disposition: Home, Self-Care 01 Condition: Good - Discharge Diagnosis/Problem(s) (1) Headache SNOMED Code(s): 36890520 ICD Code: R51 - HEADACHE Status: Acute Qualifiers: Headache type: unspecified Headache chronicity pattern: acute headache Intractability: intractable Qualified Code(s): R51 - Headache (2) Weakness of left side of body SNOMED Code(s): 440724047 ICD Code: R53.1 - WEAKNESS Status: Acute (3) Complicated migraine SNOMED Code(s): 020921581 ICD Code: G43.109 - MIGRAINE WITH AURA, NOT INTRACTABLE, W/O STATUS MIGRAINOSUS Status: Acute - Patient Summary/Data Consults: Consultations 08/20/16 14:20 Consult to Physician [CONS] Routine 08/21/16 11:02 Consult to Physical Therapy [PT Evaluation and Treatment] [CONS] Routine - Patient Instructions Diet: Usual Diet as Tolerated Activity: As Tolerated Showering/Bathing: May Shower Notify Provider of: Fever, Increased Pain, Swelling and Redness, Drainage, Nausea and/or Vomiting - Discharge Plan Prescriptions/Med Rec: Ondansetron [Zofran ODT] 4 mg PO Q4H PRN #15 tab.dis PRN Reason: Nausea Home Medications: Home Meds Phentermine HCl 30 mg PO DAILY 08/20/16 [History] Topiramate 100 mg PO DAILY 08/20/16 [History] Acetaminophen [Tylenol] 650 mg PO Q4H PRN #0 tablet 08/21/16 [Rx] Ondansetron [Zofran ODT] 4 mg PO Q4H PRN #15 tab.dis 08/21/16 [Rx] Patient Handouts: Migraine Headache, [id number], Ondansetron tablets Referrals: Melina Caraballo MD [Physician] - 08/28/16 9:00 am (1 week) Niya Herman MD [Physician] - 09/02/16 2:00 pm (please arrange follow up 2- 3 weeks) - Discharge Summary/Plan Comment DC Time >30 min.: No Discharge Summary/Plan Comment: Discharge Diagnoses: Complicated Migraine Hx gastric sleeve Alba was admitted and worked up for left sided weakness and headache. Head CT negative. MRI of brain was completed to rule out acute stroke. MRI negative for mass or ischemia, it did not Chiari I malformation without compression. Dr. herman was consulted, please see consultation. L sided weakness likely from complicated migraine. Her migrain was treated with Toradol, Benadryl and Reglan with improvement. PT consulted for L sided weakness. She was able to ambulate with some dragging of left foot. She was very eager to be discharged and will follow up with Dr. Herman. No new medications at this time. Tylenol for headache if needed. PT/OT evaluation and treatment as outpatient. She is to return to ED or clinic if concerns should arise, follow with Cesar in 2-3 weeks. - General Info Date of Service: 08/22/16 Admission Dx/Problem (Free Text: headache, left sided weakness and numbness Subjective Update: headache improving, very eager for discharge home tonight. L sided weakness and tingling continues with little improvement. Functional Status: Reports: pain controlled, tolerating diet, ambulating - Review of Systems General: Reports: No Symptoms. Denies: Fever HEENT: Reports: headaches (improving, requesting discharge.) Cardiovascular: Reports: No Symptoms. Denies: Chest Pain Gastrointestinal: Reports: No symptoms. Denies: Abdominal pain, Nausea, Vomiting Musculoskeletal: Denies: neck pain Neurological: Reports: Tingling (left sided. to arm and leg) Psychiatric: Reports: no symptoms - Patient Data Vitals - Most Recent: Last Vital Signs Temp 98.7 F 08/21/16 12:00 Pulse 76 08/21/16 12:00 Resp 16 08/21/16 12:00 BP 115/58 L 08/21/16 12:00 Pulse Ox 100 08/21/16 14:20 Weight - Most Recent: 71.214 kg I&O - Last 24 hours: Intake & Output 08/21/16 08/21/16 08/21/16 06:59 14:59 22:59 Intake Total 1000 Balance 1000 Med Orders - Current: Current Medications Acetaminophen (Tylenol) 650 mg PO Q4H PRN PRN Reason: Pain Last Admin: 08/21/16 11:32 Dose: 650 mg Albuterol (Proventil Neb Soln) 2.5 mg NEB Q2H PRN PRN Reason: Shortness Of Breath/wheezing Sodium Chloride (Normal Saline) 1,000 mls @ 125 mls/hr IV ASDIRECTED [facility] Last Admin: 08/21/16 07:51 Dose: 125 mls/hr Ketorolac Tromethamine (Toradol) 15 mg IVPUSH Q6H PRN PRN Reason: Pain Stop: 08/25/16 14:50 Ondansetron HCl (Zofran) 4 mg IVPUSH Q4H PRN PRN Reason: Nausea Ondansetron HCl (Zofran Odt) 4 mg PO Q4H PRN PRN Reason: Nausea/Vomiting Discontinued Medications Aspirin (Aspirin) 324 mg PO ONETIME ONE Stop: 08/20/16 12:55 Last Admin: 08/20/16 13:00 Dose: 324 mg Diphenhydramine HCl (Benadryl) 50 mg IVPUSH ONETIME ONE Stop: 08/20/16 10:54 Last Admin: 08/20/16 11:07 Dose: 50 mg Diphenhydramine HCl (Benadryl) 25 mg IVPUSH ONETIME ONE Stop: 08/20/16 14:53 Last Admin: 08/20/16 16:50 Dose: 25 mg Diphenhydramine HCl (Benadryl) 25 mg IVPUSH ONETIME ONE Stop: 08/21/16 13:29 Last Admin: 08/21/16 13:47 Dose: 25 mg Gadobenate Dimeglumine (Multihance) 20 ml IVPUSH ONETIME STA Stop: 08/20/16 16:06 Last Admin: 08/20/16 16:07 Dose: 14 ml Sodium Chloride (Normal Saline) 1,000 mls @ 999 mls/hr IV STAT ONE Stop: 08/20/16 11:53 Last Admin: 08/20/16 11:07 Dose: 999 mls/hr Ketorolac Tromethamine (Toradol) 30 mg IVPUSH ONETIME ONE Stop: 08/20/16 12:38 Last Admin: 08/20/16 12:53 Dose: 30 mg Ketorolac Tromethamine (Toradol) 30 mg IVPUSH ONETIME ONE Stop: 08/21/16 13:29 Last Admin: 08/21/16 13:42 Dose: 30 mg Lorazepam (Ativan) 1 mg IVPUSH ONETIME ONE Stop: 08/20/16 10:54 Last Admin: 08/20/16 11:07 Dose: 1 mg Metoclopramide HCl (Reglan) 10 mg IVPUSH ONETIME ONE Stop: 08/20/16 15:06 Last Admin: 08/20/16 16:50 Dose: 10 mg Metoclopramide HCl (Reglan) 10 mg IVPUSH ONETIME ONE Stop: 08/21/16 13:29 Last Admin: 08/21/16 13:42 Dose: 10 mg - Exam General: Reports: alert, oriented, cooperative, no acute distress HEENT: Reports: Pupils equal, Pupils reactive Neck: Reports: supple, trachea midline Lungs: Reports: Clear to auscultation, Normal respiratory effort Cardiovascular: Reports: Regular Rate, Regular Rhythm Extremities: Reports: no edema Neurological: Reports: no new focal deficit, other (weakness continues to L, slightly improved. ) Psy/Mental Status: Reports: alert, normal affect, normal mood *Q Meaningful Use (DIS) - VTE *Q VTE Criteria *Q: - Stroke *Q Stroke Criteria *Q: - AMI *Q AMI Criteria *Q:
== END 2016-08-21 16:55 | disposition home or self-care (01) | DRG 54 ==
LOC: MW.ED 10:27 → MW.MS 13:09
PROVIDERS: ADMIT Family Medicine; ATTEND Family Medicine
DX: G43.109 Migraine with aura, not intractable, without status migrainosus (principal); R53.1 Weakness; R11.2 Nausea with vomiting, unspecified; Z98.84 Bariatric surgery status; Z88.8 Allergy status to other drugs, medicaments and biological substances; Z79.899 Other long term (current) drug therapy
CPT/HCPCS: 36415; 70450; 70450-26; 70553; 70553-26; 80053; 80061; 81001; 81025; 83036; 84484; 85025; 85610; 85652; 93005; 96361; 96374; 96375; 97162-GP; 99284; 99285-25; A9270-GY; A9577; J1200; J1885; J2060; J2765; J7040

== ENCOUNTER 2017-04-08 09:57 | Emergency (ER) | payer BC, OTHER ==
[2017-04-08] MEDS ORDERED: Sodium Chloride 0.9% 2.5 ML Syringe FLUSH PRN (10:04)
[2017-04-08] MEDS ORDERED: Sodium Chloride 0.9% 10 ML Syringe FLUSH PRN (10:04)
[2017-04-08] MEDS ORDERED: Aspirin 81 MG Tab.Chew PO ONE (10:09)
[2017-04-08] MEDS ORDERED: Sodium Chloride 0.9% 1,000 ML IV ONE (10:11)
--- NOTE | 2017-04-08 10:20 | EDM.PDOC ---
ED HPI GENERAL MEDICAL PROBLEM - General Chief Complaint: Chest Pain Stated Complaint: CHEST PAIN Time Seen by Provider: 04/08/17 10:05 Source of Information: Reports: Patient History Limitations: Reports: No Limitations - History of Present Illness INITIAL COMMENTS - FREE TEXT/NARRATIVE: HISTORY AND PHYSICAL: History of present illness: [Patient comes to the emergency room complaining of left-sided chest pain. The pain began at 1 AM this morning and woke her up from sleep. She describes the pain as a "constant ache" over her left chest which radiates around under her left armpit into her left shoulder blade. She rates the pain as 6/10. She is also having an aching pain in her left jaw and feels like she's been "punched" in that area. She denies feeling short of breath or having difficulty breathing but states that her breathing feels different. When she takes a deep breath it is triggering a cough. This is unusual for her. She has not taken any medication for her symptoms today. She denies any cardiac history. States that she was admitted several weeks ago for severe migraine causing weakness to her left side. She feels that her left- sided weakness has completely resolved. She also recently passed a kidney stone. She has otherwise been well without recent illness or infection. History of gastric sleeve Review of systems: As per history of present illness and below otherwise all systems reviewed and negative. Past medical history: As per history of present illness and as reviewed below otherwise noncontributory. Surgical history: As per history of present illness and as reviewed below otherwise noncontributory. Social history: No reported history of drug or alcohol abuse. Family history: As per history of present illness and as reviewed below otherwise noncontributory. Physical exam: All developed well-nourished, female in no acute distress. HEENT: Atraumatic, normocephalic. Oral mucous membranes are pink and moist. Lungs: Clear to auscultation, breath sounds equal bilaterally Heart: S1S2, regular rate and rhythm. No murmur gallop click or rub. EKG shows a rate of 67 in normal sinus rhythm. Abdomen: Soft, nondistended, nontender. Negative for masses, guarding or rebound. Pelvis: Stable nontender. Genitourinary: Deferred. Rectal: Deferred. Extremities: Atraumatic, negative for cords or calf pain. Neurovascular unremarkable. Neuro: Awake, alert, oriented. Smile and facial movements are symmetrical. Left hand front office spec strength is weaker than on the right. Strength to upper and lower extremities is 5 out of 5 and equal bilaterally. No pronator drift. Motor and sensory unremarkable throughout. Diagnostics: [EKG, chest x-ray, head CT without contrast, CBC, CMP, troponin, PT/INR, d-dimer ] Therapeutics: [Aspirin 324 mg, nitroglycerin 0.4 mg, 1 L normal saline at 500 mils per hour] Impression: [L sided chest wall pain] Plan: [EKG shows no abnormalities. Troponin and other labs are negative. Will treat as musculoskeletal pain. She had immediate relief following Toradol administration, but pain returned approx 30 minutes later. Patient is notified of normal labs and she requests discharge to home. Recommend OTC analgesics and anti-inflammatories. Strict return precautions are discussed. ] Definitive disposition and diagnosis as appropriate pending reevaluation and review of above. Left Chest Pain Score (Numeric/FACES): 7 - Related Data Allergies Allergy/AdvReac Type Severity Reaction Status Date / Time chocolate flavor Allergy Difficulty Verified 04/08/17 10:03 Breathing codeine Allergy Rash Verified 04/08/17 10:03 Home Meds: Home Meds Phentermine HCl 30 mg PO DAILY 08/20/16 [History] Topiramate 100 mg PO DAILY 08/20/16 [History] Acetaminophen [Tylenol] 650 mg PO Q4H PRN #0 tablet 08/21/16 [Rx] Past Medical History HEENT History: Reports: None Cardiovascular History: Reports: None Respiratory History: Reports: Asthma Gastrointestinal History: Reports: None Genitourinary History: Reports: None TRAVEL OT History: Reports: Musculoskeletal History: Reports: None Neurological History: Reports: Headaches, Chronic Psychiatric History: Reports: None Endocrine/Metabolic History: Reports: None Hematologic History: Reports: None Immunologic History: Reports: None Oncologic (Cancer) History: Reports: None Dermatologic History: Reports: None - Infectious Disease History Infectious Disease History: Reports: Chicken Pox - Past Surgical History GI Surgical History: Reports: Appendectomy, Cholecystectomy, Other (See Below) Other GI Surgeries/Procedures: Gastric Sleeve. Surgery Female Surgical History: Reports: Section Endocrine Surgical History: Reports: Thyroid Biopsy Dermatological Surgical History: Reports: Other (See Below) Social & Family History - Family History Family Medical History: Noncontributory - Tobacco Use Smoking Status *Q: Never Smoker - Caffeine Use Caffeine Use: Reports: None - Alcohol Use Days Per Week of Alcohol Use: 0 Number of Drinks Per Day: 0 Total Drinks Per Week: 0 - Recreational Drug Use Recreational Drug Use: No Drug Use in Last 12 Months: No ED ROS GENERAL - Review of Systems Review Of Systems: ROS reveals no pertinent complaints other than HPI. ED EXAM, GENERAL - Physical Exam Exam: See Below Course - Vital Signs Last Recorded V/S: Last Vital Signs Temp 96.9 F 04/08/17 10:00 Pulse 74 04/08/17 10:00 Resp 18 04/08/17 10:00 BP 100/63 04/08/17 10:40 Pulse Ox 98 04/08/17 10:00 - Orders/Labs/Meds Orders: Active Orders 24 hr Category Date Time Status EKG Documentation Completion [RC] STAT Care 04/08/17 10:04 Active Sodium Chloride 0.9% [Normal Saline] 1,000 ml Med 04/08/17 10:11 Active IV STAT Sodium Chloride 0.9% [Saline Flush] Med 04/08/17 10:04 Active 10 ml FLUSH ASDIRECTED PRN Sodium Chloride 0.9% [Saline Flush] Med 04/08/17 10:04 Active 2.5 ml FLUSH ASDIRECTED PRN Saline Lock Insert [OM.PC] Stat Oth 04/08/17 10:04 Ordered Medication Orders Sodium Chloride (Normal Saline) 1,000 mls @ 500 mls/hr IV STAT ONE Stop: 04/08/17 12:10 Last Admin: 04/08/17 10:20 Dose: 500 mls/hr Sodium Chloride (Saline Flush) 10 ml FLUSH ASDIRECTED PRN PRN Reason: Keep Vein Open Sodium Chloride (Saline Flush) 2.5 ml FLUSH ASDIRECTED PRN PRN Reason: Keep Vein Open Labs: Laboratory Tests 04/08/17 04/08/17 04/08/17 Range/Units 10:55 10:55 10:55 WBC 5.97 (4.0-11.0) K/uL RBC 3.97 L (4.30-5.90) M/uL Hgb 12.7 (12.0-16.0) g/dL Hct 36.5 (36.0-46.0) % MCV 91.9 (80.0-98.0) fL MCH 32.0 (27.0-32.0) pg MCHC 34.8 (31.0-37.0) g/dL RDW Std Deviation 44.3 (28.0-62.0) fl RDW Coeff of Terri 13 (11.0-15.0) % Plt Count 100 L (150-400) K/uL MPV 11.00 (7.40-12.00) fL Neut % (Auto) 67.7 (48.0-80.0) % Lymph % (Auto) 22.9 (16.0-40.0) % Stewart % (Auto) 7.4 (0.0-15.0) % Eos % (Auto) 1.7 (0.0-7.0) % Baso % (Auto) 0.3 (0.0-1.5) % Neut # (Auto) 4.0 (1.4-5.7) K/uL Lymph # (Auto) 1.4 (0.6-2.4) K/uL Stewart # (Auto) 0.4 (0.0-0.8) K/uL Eos # (Auto) 0.1 (0.0-0.7) K/uL Baso # (Auto) 0.0 (0.0-0.1) K/uL Nucleated RBC % 0.0 /100WBC Nucleated RBCs # 0 K/uL INR 0.99 D-Dimer, Quantitative (0.0-0.52) mg/LFEU Sodium 138 (136-146) mmol/L Potassium 3.6 (3.5-5.1) mmol/L Chloride 110 (98-110) mmol/L Carbon Dioxide 21 (21-31) mmol/L BUN 13 (6.0-23.0) mg/dL Creatinine 0.6 (0.6-1.5) mg/dL Est Cr Clr Drug Dosing 94.85 mL/min Estimated GFR (MDRD) > 60.0 ml/min Glucose 82 (60-110) mg/dL Calcium 8.9 (8.8-10.8) mg/dL Total Bilirubin 0.4 (0.1-1.5) mg/dL AST 15 (5-40) IU/L ALT 14 (8-54) IU/L Alkaline Phosphatase 53 (40-150) Troponin I < 0.10 (0.0-0.29) NG/ML Total Protein 6.6 (6.0-8.0) g/dL Albumin 4.1 (3.5-5.0) g/dL Globulin 2.5 (2.0-3.5) g/dL Albumin/Globulin Ratio 1.6 (1.3-2.8) 04/08/17 Range/Units 10:55 WBC (4.0-11.0) K/uL RBC (4.30-5.90) M/uL Hgb (12.0-16.0) g/dL Hct (36.0-46.0) % MCV (80.0-98.0) fL MCH (27.0-32.0) pg MCHC (31.0-37.0) g/dL RDW Std Deviation (28.0-62.0) fl RDW Coeff of Terri (11.0-15.0) % Plt Count (150-400) K/uL MPV (7.40-12.00) fL Neut % (Auto) (48.0-80.0) % Lymph % (Auto) (16.0-40.0) % Stewart % (Auto) (0.0-15.0) % Eos % (Auto) (0.0-7.0) % Baso % (Auto) (0.0-1.5) % Neut # (Auto) (1.4-5.7) K/uL Lymph # (Auto) (0.6-2.4) K/uL Stewart # (Auto) (0.0-0.8) K/uL Eos # (Auto) (0.0-0.7) K/uL Baso # (Auto) (0.0-0.1) K/uL Nucleated RBC % /100WBC Nucleated RBCs # K/uL INR D-Dimer, Quantitative < 0.19 (0.0-0.52) mg/LFEU Sodium (136-146) mmol/L Potassium (3.5-5.1) mmol/L Chloride (98-110) mmol/L Carbon Dioxide (21-31) mmol/L BUN (6.0-23.0) mg/dL Creatinine (0.6-1.5) mg/dL Est Cr Clr Drug Dosing mL/min Estimated GFR (MDRD) ml/min Glucose (60-110) mg/dL Calcium (8.8-10.8) mg/dL Total Bilirubin (0.1-1.5) mg/dL AST (5-40) IU/L ALT (8-54) IU/L Alkaline Phosphatase (40-150) Troponin I (0.0-0.29) NG/ML Total Protein (6.0-8.0) g/dL Albumin (3.5-5.0) g/dL Globulin (2.0-3.5) g/dL Albumin/Globulin Ratio (1.3-2.8) Meds: Medications Generic Name Dose Route Start Last Admin Trade Name Freq PRN Reason Stop Dose Admin Sodium Chloride 1,000 mls @ 500 mls/hr 04/08/17 10:11 04/08/17 10:20 Normal Saline IV 04/08/17 12:10 500 mls/hr STAT ONE Administration Sodium Chloride 10 ml 04/08/17 10:04 Saline Flush FLUSH ASDIRECTED PRN Keep Vein Open Sodium Chloride 2.5 ml 04/08/17 10:04 Saline Flush FLUSH ASDIRECTED PRN Keep Vein Open Discontinued Medications Generic Name Dose Route Start Last Admin Trade Name Freq PRN Reason Stop Dose Admin Aspirin 324 mg 04/08/17 10:09 04/08/17 10:20 Aspirin PO 04/08/17 10:10 324 mg ONETIME ONE Administration Ketorolac Tromethamine 30 mg 04/08/17 10:40 04/08/17 10:48 Toradol IVPUSH 04/08/17 10:41 30 mg ONETIME ONE Administration Nitroglycerin 0.4 mg 04/08/17 10:16 04/08/17 10:40 Nitrostat SL 0.4 mg Q5M PRN Administration Chest Pain Departure - Departure Time of Disposition: 11:56 Disposition: Home, Self-Care 01 Condition: Good Clinical Impression: Left-sided chest wall pain Referrals: Melina Caraballo MD [Primary Care Provider] - Forms: ED Department Discharge Additional Instructions: The following information is given to patients seen in the emergency department who are being discharged to home. This information is to outline your options for follow-up care. We provide all patients seen in our emergency department with a follow-up referral. The need for follow-up, as well as the timing and circumstances, are variable depending upon the specifics of your emergency department visit. If you don't have a primary care physician on staff, we will provide you with a referral. We always advise you to contact your personal physician following an emergency department visit to inform them of the circumstance of the visit and for follow-up with them and/or the need for any referrals to a consulting specialist. The emergency department will also refer you to a specialist when appropriate. This referral assures that you have the opportunity for follow-up care with a specialist. All of these measure are taken in an effort to provide you with optimal care, which includes your follow-up. Under all circumstances we always encourage you to contact your private physician who remains a resource for coordinating your care. When calling for follow-up care, please make the office aware that this follow-up is from your recent emergency room visit. If for any reason you are refused follow-up, please contact the [facility] emergency department at and asked to speak to the emergency department charge nurse. [facility] [address] [place] [address] Follow-up with your primary care provider at the clinic listed above in 48-72 hours. [id number] pain reliever as needed for discomfort. You may apply ice alternating with heat as needed for discomfort. Return to ER as needed as discussed. - My Orders Last 24 Hours: My Active Orders 04/08/17 10:04 EKG Documentation Completion [RC] STAT Sodium Chloride 0.9% [Saline Flush] 10 ml FLUSH ASDIRECTED PRN Sodium Chloride 0.9% [Saline Flush] 2.5 ml FLUSH ASDIRECTED PRN Saline Lock Insert [OM.PC] Stat 04/08/17 10:11 Sodium Chloride 0.9% [Normal Saline] 1,000 ml IV STAT - Assessment/Plan Last 24 Hours: My Active Orders 04/08/17 10:04 EKG Documentation Completion [RC] STAT Sodium Chloride 0.9% [Saline Flush] 10 ml FLUSH ASDIRECTED PRN Sodium Chloride 0.9% [Saline Flush] 2.5 ml FLUSH ASDIRECTED PRN Saline Lock Insert [OM.PC] Stat 04/08/17 10:11 Sodium Chloride 0.9% [Normal Saline] 1,000 ml IV STAT
[2017-04-08] MEDS: Nitroglycerin 0.4 MG Tab.SL SL PRN ×3 (10:25→10:40)
[2017-04-08] MEDS ORDERED: Ketorolac 30 MG/ML SDV IVPUSH ONE (10:40)
--- NOTE | 2017-04-08 11:17 | CT ---
EXAMINATION: Non contrast CT head. Coronal and sagittal reformats. HISTORY: Left-sided weakness FINDINGS: No evidence of intra or extra axial hemorrhage, mass, midline shift, hydrocephalus or edema. No hypoattenuation changes in the major vascular territories to suggest acute infarct. No abnormal intracranial calcifications are detected. No evidence of substantial vascular calcificat ions. Paranasal sinuses and mastoid air cells are well aerated without substantial findings. Orbits and gl obes are symmetric. Pituitary fossa appears unremarkable. Calvarium is intact. No evidence of skull fracture. IMPRESSION: No acute intracranial findings.
[2017-04-08 11:25] LABS: CHLORIDE,CL 110 mmol/L (98-110); SODIUM,NA 138 mmol/L (136-146)
--- NOTE | 2017-04-08 11:42 | CR ---
EXAMINATION: Two-view chest (PA and Lateral views). HISTORY: Chest pain. FINDINGS: The trachea is midline. The cardiomediastinal silhouette is within normal limits. No pulmonary infilt rates, effusions or pneumothorax. Benign calcified granuloma within the right apex. Osseous structures appear unremarkable. IMPRESSION: No acute cardiopulmonary process.
[2017-04-08 14:10] VITALS: BP 125/53
== END 2017-04-08 12:12 | disposition home or self-care (01) ==
LOC: MW.ED 09:57
DX: R07.89 Other chest pain (principal); Z79.899 Other long term (current) drug therapy; Z88.5 Allergy status to narcotic agent; Z91.018 Allergy to other foods
CPT/HCPCS: 36415; 70450; 71046; 80053; 84484; 85025; 85379; 85610; 93005; 96361; 96374; 99285; A9270; J1885; J7040; 99284

== ENCOUNTER 2024-05-20 09:50 | Day surgery (SDC) | payer BC, OTHER ==
[~2024-05-20 09:50] MED LIST: Lidocaine 2% 5 ML SDV ONE; Ondansetron 4 MG/2 ML SDV ONE; Sodium Chloride 0.9% 10 ML Syringe FLUSH PRN; Sodium Chloride 0.9% 2.5 ML Syringe FLUSH PRN; Sodium Chloride 0.9% 20 ML SDV IV PRN; propofoL 500 MG/50 ML 50 ML ONE
[2024-05-20] MEDS: Lactated Ringers 1,000 ML IV SCH (10:35)
[2024-05-20] MEDS ORDERED: Ondansetron 4 MG/2 ML SDV ONE (12:01)
[2024-05-20 14:13] VITALS: BP 114/58; PULSE 64
== END 2024-05-20 13:09 | disposition home or self-care (01) ==
LOC: MW.SDS 09:50
PROVIDERS: ATTEND Surgery
DX: D12.5 Benign neoplasm of sigmoid colon (principal); K44.9 Diaphragmatic hernia without obstruction or gangrene; K21.9 Gastro-esophageal reflux disease without esophagitis; J45.909 Unspecified asthma, uncomplicated; I10 Essential (primary) hypertension; F32.A Depression, unspecified; E03.9 Hypothyroidism, unspecified; Z79.890 Hormone replacement therapy; Z79.899 Other long term (current) drug therapy; Z88.5 Allergy status to narcotic agent; Z86.0100 Personal history of colon polyps, unspecified
CPT/HCPCS: 43239; 45380; J2003; J2405; J2704; J7120; 00813